=== PATIENT | female | born 1990 | race Caucasian/White ===

== ENCOUNTER 2024-06-12 08:10 | Day surgery (SDC) | payer OTHER ==
[2024-06-12] MEDS ORDERED: fentaNYL 100 MCG/2 ML SDV ONE (08:38)
[2024-06-12] MEDS ORDERED: Midazolam 1 MG/ML 2 ML SDV ONE (08:38)
[2024-06-12] MEDS ORDERED: Propofol 200 MG/20 ML SDV ONE ×3 (08:38→10:14)
[2024-06-12] MEDS: ceFAZolin 2 GM in Premix Bag 1 BAG IV ONE (09:00)
[2024-06-12] MEDS: Sodium Chloride 0.9% 1,000 ML IV SCH (09:00)
[2024-06-12] MEDS ORDERED: Lactated Ringers 1,000 ML ONE (10:10)
[2024-06-12] MEDS: Bupivacaine 0.5% 50 ML MDV ONE (10:56)
[2024-06-12] MEDS: Lidocaine 1% with EPINEPHrine 1:100,000 50 ML MDV ONE (10:57)
== END 2024-06-12 13:20 | disposition home or self-care (01) ==
LOC: JP.SDS 08:10
PROVIDERS: ATTEND Surgery
DX: C81.90 Hodgkin lymphoma, unspecified, unspecified site (principal); F17.200 Nicotine dependence, unspecified, uncomplicated; Z88.8 Allergy status to other drugs, medicaments and biological substances
CPT/HCPCS: 36561; 71045; 77001; 81025; J0665; J0690; J1642; J2250; J2704; J3010; J7030; J7120; C1788; C1894